=== PATIENT | male | born 1975 | race African-American/Black ===

== ENCOUNTER 2024-01-03 19:59 | Emergency (ER) | payer OTHER ==
[~2024-01-03] VITALS: Ht 170.2 cm; Wt 90.9 kg
[~2024-01-03 19:59] MED LIST: NALT50TA6 PO; NICO-803 TD; OLAN5TAB77 PO; PANT40TA54 PO; POLY510P31 PO; QUET100T PO
[2024-01-03 20:25] VITALS: TEMP 98.3
[2024-01-03 21:02] LABS: BASOPHILS % (AUTO) 1.1 % (0.0-2.0); EOSINOPHILS % (AUTO) 2.5 % (1.0-6.0); HEMATOCRIT 35.1 % (41-53); HEMOGLOBIN 10.9 g/dL (13.5-17.5); LYMPHOCYTES # (AUTO) 1.8 K/uL (1.0-4.8); MEAN CORPUSCULAR HEMOGLOBIN 19.1 pg (26.0-34.0); MEAN CORPUSCULAR HGB CONC 30.9 G/dL (31.0-37.0); MEAN CORPUSCULAR VOLUME 62 fL (80-100); MONOCYTES # (AUTO) 0.4 K/uL (0.1-1.0); NEUTROPHILS # (AUTO) 3.3 K/uL (1.8-7.7); NEUTROPHILS % (AUTO) 58.4 % (40.0-70.0); PLATELET COUNT (AUTO) 297 K/uL (150-450); RED BLOOD CELL COUNT(AUTO) 5.68 MIL/uL (4.50-5.90); RED CELL DISTRIBUTION WIDTH 17.1 % (11.5-14.5); WHITE BLOOD COUNT (AUTO) 5.7 K/uL (4.5-11.0)
[2024-01-03 21:06] LABS: APPEARANCE,URINE CLEAR (CLEAR); BILIRUBIN,URINE NEGATIVE (NEGATIVE); COLOR,URINE LIGHT YELLOW (YELLOW); GLUCOSE, URINE (UA) NEGATIVE (NEGATIVE); KETONES,URINE NEGATIVE (NEGATIVE); LEUKOCYTE ESTERASE ,URINE MODERATE (NEGATIVE); NITRATE,URINE NEGATIVE (NEGATIVE); OCCULT BLOOD,URINE NEGATIVE (NEGATIVE); PROTEIN,URINE NEGATIVE (NEGATIVE); SPECIFIC GRAVITIY, URINE 1.023 (1.003-1.030); UROBILINOGEN,URINE <=1.0 mg/dL (<=1.0)
[2024-01-03 21:10] LABS: ANION GAP 5 mmol/L (8-16); CALCIUM, TOTAL 9.3 mg/dL (8.8-10.5); CARBON DIOXIDE 33 mmol/L (22-29); CHLORIDE 103 mmol/L (98-107); GLOMERULAR FILTR. RATE CALC > 60 mL/min (>60); GLUCOSE,RANDOM 133 mg/dL (70-110); POTASSIUM 3.6 mmol/L (3.5-5.1); SODIUM SERUM 141 mmol/L (136-145); UREA NITROGEN, BLOOD 14 mg/dL (7-18)
[2024-01-03 21:11] LABS: ALCOHOL, URINE DRUG SCREEN NEGATIVE (NEGATIVE); AMPHET/METH SCREEN,URINE POSITIVE (NEGATIVE); BARBITURATE SCREEN, URINE NEGATIVE (NEGATIVE); BENZODIAZEPINES SCREEN,URINE NEGATIVE (NEGATIVE); CANNABINOID SCREEN,URINE POSITIVE (NEGATIVE); COCAINE SCREEN,URINE NEGATIVE (NEGATIVE); METHADONE SCREEN, URINE NEGATIVE (NEGATIVE); OPIATE SCREEN,URINE NEGATIVE (NEGATIVE); PHENCYCLIDINE SCREEN,URINE NEGATIVE (NEGATIVE)
[2024-01-03 21:13] LABS: BACTERIA,URINE Rare /HPF (None Seen); RBC,URINE 0-2 /HPF (0-2); SQUAMOUS EPITHELIAL CELL,UR Rare /LPF (None Seen)
[2024-01-03 21:15] LABS: B-TYPE NATRIURETIC PEPTIDE 153 pg/mL (0-100)
[2024-01-03 21:16] LABS: RBC MORPHOLOGY COMMENT ABNORMAL RBC MORPH
[2024-01-03 21:17] LABS: PLATELET MORPHOLOGY COMMENT GIANT PLTS PRESENT
[2024-01-03 21:18] LABS: TROPONIN I-HIGH SENSITIVITY 10 ng/L (<76)
[2024-01-03 21:19] LABS: ALANINE AMINOTRANSFERASE 38 U/L (12-78); ALBUMIN 3.2 g/dL (3.4-5.0); ALKALINE PHOSPHATASE 82 U/L (46-116); ASPARTATE AMINOTRANSFERASE 16 U/L (15-37); BILIRUBIN,TOTAL 0.4 mg/dL (0.1-1.0); CREATINE KINASE, TOTAL ONLY 141 U/L (39-308); TOTAL PROTEIN, SERUM 6.5 g/dL (6.4-8.2)
[2024-01-03] MEDS ORDERED: CEPH-558 PO (21:33)
[2024-01-03 21:40] VITALS: BP 123/79; PULSE 87; RESP 20
== END 2024-01-03 22:11 | disposition home or self-care (01) ==
LOC: EMS 19:59
DX: N39.0 Urinary tract infection, site not specified (principal); F15.10 Other stimulant abuse, uncomplicated; F17.210 Nicotine dependence, cigarettes, uncomplicated
CPT/HCPCS: 80053; 80307; 81001; 82550; 83880; 84484; 85025; 87086; 87186; 93005; 99284

== ENCOUNTER 2024-01-24 19:07 | Emergency (ER) | payer OTHER ==
[~2024-01-24] VITALS: Ht 170.2 cm; Wt 88.6 kg
[~2024-01-24 19:07] MED LIST changes: +CEPH-558 PO; -NALT50TA6 PO; -NICO-803 TD; -OLAN5TAB77 PO; -PANT40TA54 PO; -POLY510P31 PO; -QUET100T PO
[2024-01-24 19:51] LABS: BASOPHILS % (AUTO) 0.9 % (0.0-2.0); EOSINOPHILS % (AUTO) 4.2 % (1.0-6.0); HEMOGLOBIN 10.2 g/dL (13.5-17.5); LYMPHOCYTES # (AUTO) 2.3 K/uL (1.0-4.8); MEAN CORPUSCULAR HEMOGLOBIN 19.2 pg (26.0-34.0); MEAN CORPUSCULAR HGB CONC 30.8 G/dL (31.0-37.0); MEAN CORPUSCULAR VOLUME 62 fL (80-100); MONOCYTES # (AUTO) 0.4 K/uL (0.1-1.0); MONOCYTES % (AUTO) 6.8 % (2.0-9.0); NEUTROPHILS # (AUTO) 2.5 K/uL (1.8-7.7); NEUTROPHILS % (AUTO) 46.1 % (40.0-70.0); PLATELET COUNT (AUTO) 290 K/uL (150-450); WHITE BLOOD COUNT (AUTO) 5.5 K/uL (4.5-11.0)
[2024-01-24 19:56] LABS: ANION GAP 4 mmol/L (8-16); CALCIUM, TOTAL 8.1 mg/dL (8.8-10.5); CARBON DIOXIDE 32 mmol/L (22-29); CHLORIDE 105 mmol/L (98-107); CREATININE 0.94 mg/dL (0.60-1.30); GLOMERULAR FILTR. RATE CALC > 60 mL/min (>60); GLUCOSE,RANDOM 136 mg/dL (70-110); POTASSIUM 3.2 mmol/L (3.5-5.1); SODIUM SERUM 141 mmol/L (136-145); UREA NITROGEN, BLOOD 11 mg/dL (7-18)
[2024-01-24 20:04] LABS: TROPONIN I-HIGH SENSITIVITY 10 ng/L (<76)
[2024-01-24 20:10] LABS: B-TYPE NATRIURETIC PEPTIDE 52 pg/mL (0-100)
[2024-01-24 20:15] LABS: RBC MORPHOLOGY COMMENT ABNORMAL RBC MORPH
[2024-01-24 20:35] LABS: APPEARANCE,URINE CLEAR (CLEAR); BILIRUBIN,URINE NEGATIVE (NEGATIVE); COLOR,URINE LIGHT YELLOW (YELLOW); GLUCOSE, URINE (UA) NEGATIVE (NEGATIVE); KETONES,URINE NEGATIVE (NEGATIVE); LEUKOCYTE ESTERASE ,URINE LARGE (NEGATIVE); NITRATE,URINE NEGATIVE (NEGATIVE); OCCULT BLOOD,URINE NEGATIVE (NEGATIVE); PROTEIN,URINE TRACE mg/dL (NEGATIVE); SPECIFIC GRAVITIY, URINE 1.026 (1.003-1.030); UROBILINOGEN,URINE <=1.0 mg/dL (<=1.0)
[2024-01-24] MEDS: POTASSIUM CHLORIDE 20 MEQ ER TABLET PO ONE (20:35)
[2024-01-24 21:07] LABS: BACTERIA,URINE Rare /HPF (None Seen); RBC,URINE 0-2 /HPF (0-2)
[2024-01-24 22:14] VITALS: BP 154/90; PULSE 93; RESP 16; TEMP 98.3
[2024-01-24] MEDS ORDERED: DOXY-354 PO (22:15)
[2024-01-24] MEDS: LIDOCAINE/PF 1% 2 ML VIAL IM ONE (22:55)
[2024-01-24] MEDS: DOXYCYCLINE HYCLATE 100 MG TABLET PO ONE (22:55)
[2024-01-24] MEDS: CefTRIAXone SODIUM 1 GM/VIAL IM ONE (22:55)
== END 2024-01-24 23:16 | disposition home or self-care (01) ==
LOC: EMS 19:07
DX: N39.0 Urinary tract infection, site not specified (principal); F15.10 Other stimulant abuse, uncomplicated; R60.0 Localized edema; F17.210 Nicotine dependence, cigarettes, uncomplicated
CPT/HCPCS: 99284; 99406; 80048; 81001; 83880; 84484; 85025; 36415; 87086; 87186; 93005; 96372; J0696; J3490

== ENCOUNTER 2024-03-02 21:41 | Emergency (ER) | payer OTHER ==
[~2024-03-02] VITALS: Ht 172.7 cm; Wt 89.0 kg
[~2024-03-02 21:41] MED LIST changes: +DOXY-354 PO
[2024-03-02 21:43] VITALS: BP 136/77; PULSE 86; RESP 18; TEMP 98.2; O2SAT 100
[2024-03-02] MEDS: KETOROLAC TROMETHAMINE 30 MG/ML VIAL IM ONE (23:58)
[2024-03-02] MEDS: TraMADol HCL 50 MG TABLET PO ONE (23:59)
== END 2024-03-03 00:05 | disposition home or self-care (01) ==
LOC: EMS 21:43
DX: M25.511 Pain in right shoulder (principal); M25.531 Pain in right wrist; F17.210 Nicotine dependence, cigarettes, uncomplicated; F15.10 Other stimulant abuse, uncomplicated
CPT/HCPCS: 99284; 73030; 73110; 29125; 96372; J1885

== ENCOUNTER 2024-03-16 22:23 | Emergency (ER) | payer OTHER ==
[2024-03-16 23:05] LABS: COVID AG,FIA SOURCE NASAL SWAB
[2024-03-16 23:07] LABS: APPEARANCE,URINE HAZY (CLEAR); BILIRUBIN,URINE NEGATIVE (NEGATIVE); COLOR,URINE YELLOW (YELLOW); GLUCOSE, URINE (UA) NEGATIVE (NEGATIVE); KETONES,URINE TRACE mg/dL (NEGATIVE); LEUKOCYTE ESTERASE ,URINE LARGE (NEGATIVE); NITRATE,URINE NEGATIVE (NEGATIVE); OCCULT BLOOD,URINE TRACE (NEGATIVE); PH,URINE 5.5 (5.0-8.0); PROTEIN,URINE 30-70 mg/dL (NEGATIVE); SPECIFIC GRAVITIY, URINE 1.034 (1.003-1.030); UROBILINOGEN,URINE <=1.0 mg/dL (<=1.0)
[2024-03-16 23:25] LABS: SARS-COV2 (COVID) ANTIGEN,FIA Negative (Negative)
[2024-03-16 23:29] LABS: INFLUENZA TYPE A NEGATIVE FOR TYPE A (NEGATIVE); INFLUENZA TYPE B NEGATIVE FOR TYPE B (NEGATIVE)
[2024-03-16 23:39] LABS: BASOPHILS % (AUTO) 0.9 % (0.0-2.0); EOSINOPHILS % (AUTO) 0.9 % (1.0-6.0); HEMATOCRIT 39.1 % (41-53); HEMOGLOBIN 12.2 g/dL (13.5-17.5); LYMPHOCYTES # (AUTO) 3.1 K/uL (1.0-4.8); LYMPHOCYTES % (AUTO) 40.2 % (22.0-44.0); MEAN CORPUSCULAR HEMOGLOBIN 19.2 pg (26.0-34.0); MEAN CORPUSCULAR HGB CONC 31.3 G/dL (31.0-37.0); MEAN CORPUSCULAR VOLUME 61 fL (80-100); MONOCYTES # (AUTO) 0.6 K/uL (0.1-1.0); MONOCYTES % (AUTO) 7.7 % (2.0-9.0); NEUTROPHILS # (AUTO) 3.8 K/uL (1.8-7.7); NEUTROPHILS % (AUTO) 50.3 % (40.0-70.0); PLATELET COUNT (AUTO) 285 K/uL (150-450); RED BLOOD CELL COUNT(AUTO) 6.38 MIL/uL (4.50-5.90); RED CELL DISTRIBUTION WIDTH 16.6 % (11.5-14.5); WHITE BLOOD COUNT (AUTO) 7.6 K/uL (4.5-11.0)
[2024-03-16 23:50] LABS: ANION GAP 6 mmol/L (8-16); CALCIUM, TOTAL 8.4 mg/dL (8.8-10.5); CARBON DIOXIDE 31 mmol/L (22-29); CHLORIDE 102 mmol/L (98-107); CREATININE 1.11 mg/dL (0.60-1.30); GLOMERULAR FILTR. RATE CALC > 60 mL/min (>60); GLUCOSE,RANDOM 127 mg/dL (70-110); POTASSIUM 3.5 mmol/L (3.5-5.1); SODIUM SERUM 139 mmol/L (136-145); UREA NITROGEN, BLOOD 14 mg/dL (7-18)
[2024-03-16 23:56] VITALS: BP 129/77; PULSE 79; RESP 18; TEMP 98.9
[2024-03-17 00:14] LABS: SQUAMOUS EPITHELIAL CELL,UR Few /LPF (None Seen)
[2024-03-17 00:15] LABS: BACTERIA,URINE Few /HPF (None Seen); RBC,URINE None Seen /HPF (0-2)
[2024-03-17 01:49] LABS: RBC MORPHOLOGY COMMENT ABNORMAL RBC MORPH
== END 2024-03-17 00:43 | disposition home or self-care (01) ==
LOC: EMS 22:23
DX: R53.83 Other fatigue (principal); R53.81 Other malaise; F17.210 Nicotine dependence, cigarettes, uncomplicated; F15.10 Other stimulant abuse, uncomplicated; Z87.440 Personal history of urinary (tract) infections; Z20.822 Contact with and (suspected) exposure to COVID-19
CPT/HCPCS: 80048; 81001; 83735; 85025; 87086; 87186; 87804; 99283

== ENCOUNTER 2025-01-01 20:51 | Emergency (ER) | payer OTHER ==
[~2025-01-01] VITALS: Ht 172.7 cm; Wt 90.0 kg
[2025-01-01 21:00] VITALS: TEMP 98.2
[2025-01-01 21:29] LABS: PLATELET COUNT (AUTO) 273 K/uL (150-450); RED BLOOD CELL COUNT(AUTO) 6.68 MIL/uL (4.50-5.90); RED CELL DISTRIBUTION WIDTH 16.5 % (11.5-14.5); WHITE BLOOD COUNT (AUTO) 7.6 K/uL (4.5-11.0)
[2025-01-01] MEDS: ONDANSETRON HCL 4 MG/2 ML VIAL IVP ONE (21:29)
[2025-01-01 21:38] LABS: CALCIUM, TOTAL 9.4 mg/dL (8.8-10.5); CREATININE 1.08 mg/dL (0.60-1.30); GLOMERULAR FILTR. RATE CALC > 60 mL/min (>60); GLUCOSE,RANDOM 135 mg/dL (70-110); SODIUM SERUM 142 mmol/L (136-145); UREA NITROGEN, BLOOD 10 mg/dL (7-18)
[2025-01-01 21:45] LABS: ASPARTATE AMINOTRANSFERASE 19.0 U/L (15-37); TOTAL PROTEIN, SERUM 7.6 g/dL (6.4-8.2)
[2025-01-01 21:46] LABS: TROPONIN I-HIGH SENSITIVITY 7 ng/L (<76)
[2025-01-01 21:54] LABS: RBC MORPHOLOGY COMMENT ABNORMAL RBC MORPH
[2025-01-01 21:57] LABS: PATHOLOGY REVIEW, DIFF YES
[2025-01-02 00:33] LABS: APPEARANCE,URINE CLEAR (CLEAR); GLUCOSE, URINE (UA) NEGATIVE (NEGATIVE); LEUKOCYTE ESTERASE ,URINE NEGATIVE (NEGATIVE); NITRATE,URINE NEGATIVE (NEGATIVE); OCCULT BLOOD,URINE NEGATIVE (NEGATIVE); SPECIFIC GRAVITIY, URINE 1.030 (1.003-1.030)
[2025-01-02] MEDS ORDERED: ONDA-104 PO (01:25)
[2025-01-02 01:31] VITALS: BP 140/82; PULSE 86; RESP 16; O2SAT 94
== END 2025-01-02 01:41 | disposition home or self-care (01) ==
LOC: EMS 20:51
DX: K52.9 Noninfective gastroenteritis and colitis, unspecified (principal); I25.10 Atherosclerotic heart disease of native coronary artery without angina pectoris; F17.210 Nicotine dependence, cigarettes, uncomplicated; F15.90 Other stimulant use, unspecified, uncomplicated; Z86.73 Personal history of transient ischemic attack (TIA), and cerebral infarction without residual deficits; Z95.5 Presence of coronary angioplasty implant and graft; Z79.899 Other long term (current) drug therapy
CPT/HCPCS: 99285; 96374; 80048; 80076; 81003; 83690; 83880; 84484; 85025; 36415; 93005; J2405

== ENCOUNTER 2025-02-13 20:15 | Emergency (ER) | payer OTHER ==
[~2025-02-13] VITALS: Ht 170.2 cm; Wt 113.2 kg
[~2025-02-13 20:15] MED LIST changes: +ONDA-104 PO
[2025-02-13 20:31] VITALS: TEMP 98.6
[2025-02-13 21:43] LABS: PLATELET COUNT (AUTO) 251 K/uL (150-450); RED BLOOD CELL COUNT(AUTO) 5.88 MIL/uL (4.50-5.90); RED CELL DISTRIBUTION WIDTH 16.8 % (11.5-14.5); WHITE BLOOD COUNT (AUTO) 6.6 K/uL (4.5-11.0)
[2025-02-13 21:45] LABS: RBC MORPHOLOGY COMMENT ABNORMAL RBC MORPH
[2025-02-13 21:51] LABS: CALCIUM, TOTAL 8.7 mg/dL (8.8-10.5); CREATININE 1.17 mg/dL (0.60-1.30); GLOMERULAR FILTR. RATE CALC > 60 mL/min (>60); GLUCOSE,RANDOM 120 mg/dL (70-110); SODIUM SERUM 138 mmol/L (136-145); UREA NITROGEN, BLOOD 19 mg/dL (7-18)
[2025-02-13 21:55] LABS: ASPARTATE AMINOTRANSFERASE 16 U/L (15-37); CREATINE KINASE, TOTAL ONLY 363 U/L (39-308); TOTAL PROTEIN, SERUM 6.8 g/dL (6.4-8.2)
[2025-02-13 22:00] LABS: ALCOHOL, BLOOD (SERUM) < 3 mg/dL (0-10); TROPONIN I-HIGH SENSITIVITY 9 ng/L (<76)
[2025-02-13 23:00] VITALS: BP 126/88; PULSE 83; RESP 15; O2SAT 95
== END 2025-02-14 | disposition home or self-care (01) ==
LOC: EMS 20:15
DX: E87.70 Fluid overload, unspecified (principal); I11.0 Hypertensive heart disease with heart failure; I50.9 Heart failure, unspecified; I25.10 Atherosclerotic heart disease of native coronary artery without angina pectoris; F41.9 Anxiety disorder, unspecified; F32.A Depression, unspecified; F17.210 Nicotine dependence, cigarettes, uncomplicated; F15.90 Other stimulant use, unspecified, uncomplicated; Z86.73 Personal history of transient ischemic attack (TIA), and cerebral infarction without residual deficits; I25.2 Old myocardial infarction; Z79.899 Other long term (current) drug therapy
CPT/HCPCS: 99285; 71045; 80048; 80076; 82550; 83880; 84484; 85025; 85610; 85730; 36415; 93005; G0480

== ENCOUNTER 2025-05-27 19:59 | Emergency (ER) | payer OTHER ==
[~2025-05-27] VITALS: Ht 167.6 cm; Wt 109.0 kg
[2025-05-27 20:06] VITALS: TEMP 97.9
[2025-05-27 20:40] LABS: PLATELET COUNT (AUTO) 288 K/uL (150-450); RED BLOOD CELL COUNT(AUTO) 6.41 MIL/uL (4.50-5.90); RED CELL DISTRIBUTION WIDTH 17.0 % (11.5-14.5); WHITE BLOOD COUNT (AUTO) 8.5 K/uL (4.5-11.0)
[2025-05-27 20:45] LABS: CALCIUM, TOTAL 9.7 mg/dL (8.8-10.5); CREATININE 0.92 mg/dL (0.60-1.30); GLOMERULAR FILTR. RATE CALC > 60 mL/min (>60); GLUCOSE,RANDOM 125 mg/dL (70-110); SODIUM SERUM 140 mmol/L (136-145); UREA NITROGEN, BLOOD 10 mg/dL (7-18)
[2025-05-27 20:51] LABS: ASPARTATE AMINOTRANSFERASE 17.0 U/L (15-37); TOTAL PROTEIN, SERUM 7.8 g/dL (6.4-8.2)
[2025-05-27 20:56] LABS: TROPONIN I-HIGH SENSITIVITY Less Than 4 ng/L (<76)
[2025-05-27 21:01] LABS: RBC MORPHOLOGY COMMENT ABNORMAL RBC MORPH
[2025-05-27 21:04] LABS: PATHOLOGY REVIEW, DIFF YES
[2025-05-27] MEDS: SODIUM CHLORIDE 0.9% 1,000 ML IV ONE (22:26)
[2025-05-28 00:32] LABS: PH,URINE DRUG SCREEN 7.0 (5.0-8.0)
[2025-05-28 00:36] LABS: ALCOHOL, URINE DRUG SCREEN NEGATIVE (NEGATIVE); AMPHET/METH SCREEN,URINE NEGATIVE (NEGATIVE); BARBITURATE SCREEN, URINE NEGATIVE (NEGATIVE); CANNABINOID SCREEN,URINE POSITIVE (NEGATIVE); COCAINE SCREEN,URINE NEGATIVE (NEGATIVE); METHADONE SCREEN, URINE NEGATIVE (NEGATIVE)
[2025-05-28 01:05] LABS: APPEARANCE,URINE CLEAR (CLEAR); GLUCOSE, URINE (UA) NEGATIVE (NEGATIVE); LEUKOCYTE ESTERASE ,URINE NEGATIVE (NEGATIVE); NITRATE,URINE NEGATIVE (NEGATIVE); OCCULT BLOOD,URINE NEGATIVE (NEGATIVE); SPECIFIC GRAVITIY, URINE 1.031 (1.003-1.030)
[2025-05-28 01:54] VITALS: BP 160/70; PULSE 91; RESP 16; O2SAT 98
== END 2025-05-28 02:05 | disposition home or self-care (01) ==
LOC: EMS 19:59
DX: R11.16 Cannabis hyperemesis syndrome (principal); R10.13 Epigastric pain; I11.0 Hypertensive heart disease with heart failure; I25.10 Atherosclerotic heart disease of native coronary artery without angina pectoris; F15.90 Other stimulant use, unspecified, uncomplicated; F17.210 Nicotine dependence, cigarettes, uncomplicated; F41.9 Anxiety disorder, unspecified; F32.A Depression, unspecified; Z86.73 Personal history of transient ischemic attack (TIA), and cerebral infarction without residual deficits; Z79.899 Other long term (current) drug therapy
CPT/HCPCS: 99285; 96374; 71045; 96361; 80048; 80076; 81003; 82962; 83690; 83880; 84484; 85025; 85610; 85730; 36415; 93005; 80307; J1630; J7030